=== PATIENT | female | born 1960 | race Caucasian/White ===

== ENCOUNTER 2020-10-14 14:51 | Outpatient (CLI) | payer BC, SELFPAY ==
--- NOTE | ~2020-10-14 | DEXA_ITS ---
Bone Density Report Name: Angeline Joaquin Age: 60 Sex: Female Ethnicity: White Date of : 1960 Indication: postmenopausal; height loss; Referring Provider: Caryl Fisher Study: Bone densitometry was performed. Exam Date: October 14, 2020 Accession number: [id number] Bone Density: Region BMD T-score Z-score Classification AP Spine (L1-L4) 1.003 -0.4 1.0 Normal Femoral Neck (Left) 0.756 -0.8 0.4 Normal Total Hip (Left) 0.904 -0.3 0.6 Normal Total Hip Bilateral Avg 0.913 -0.3 0.7 Normal Femoral Neck (Right) 0.723 -1.1 0.1 Osteopenia Total Hip (Right) 0.921 -0.2 0.8 Normal World Health Organization criteria for BMD impression classify patients as: Normal (T-score at or above -1.0), Osteopenia (T-score between -1.0 and -2.5), or Osteoporosis (T-score at or below -2.5). 10-year Fracture Risk(1): Major Osteoporotic Fracture 7.1% Hip Fracture 0.4% Reported Risk Factors: [place] (), Neck BMD=0.723, BMI=29.4 (1) FRAX(R) Version 3.08. Fracture probability calculated for an untreated patient. Fracture probability may be lower if the patient has received treatment. Clinical Information Provided by Patient: Patient maximum height was 67 Menopause Age: 55 Onset of menses at age 13 Number of children 0 Impression: The patient has low bone mass, based on the Right Femoral Neck T-score. The patient has an estimated ten-year risk of hip fracture of 0.4% and an estimated ten-year risk of major fracture of 7.1%, based on the WHO FRAX algorithm. Discussion: BONE DENSITY IS LOW AT ONE OR MORE SKELETAL SITES. This patient's lowest T-score is low at one or more skeletal sites. It meets the World Health Organization's (WHO) criteria for ?low bone mass? (T-score between -1.0 and -2.5). The patient's 10-year risk of fracture as calculated by FRAX is less than the threshold where pharmacological therapy is recommended by the National Osteoporosis Foundation (NOF). However, all treatment decisions require clinical judgment and consideration of individual patient factors, including patient preferences, comorbidities, previous drug use, risk factors not captured in the FRAX model (e.g., frailty, falls, vitamin D deficiency, increased bone turnover, interval significant decline in bone density) and possible under or overestimation of fracture risk by FRAX. The patient should follow a healthful lifestyle (good nutrition with adequate calcium and vitamin D, and appropriate weight-bearing exercise). Follow-Up: Consider repeating this study in 2 to 3 years to reassess this patient's status, or sooner if there is some new clinical indication. Reported by: SANG on 10/14/2020 3:24:00 PM. Reviewed, dictated and finalized at location A. [facility]
--- NOTE | ~2020-10-14 | MM_ITS ---
EXAMINATION: MM screening [facility] BI w óscar HISTORY: Screening TECHNIQUE: Craniocaudal and mediolateral oblique 3-D tomosynthesis images were obtained and synthetic 2-D images were generated. CAD analysis was submitted and interpreted. COMPARISON: 02/27/2017 BREAST PARENCHYMAL COMPOSITION: The breasts are heterogeneously dense, which may obscure small masses . FINDINGS: There is no evidence of suspicious mass, calcification, or architectural distortion to sugg est malignancy in either breast. There has been no suspicious interval change. IMPRESSION: 1. No mammographic evidence of malignancy. 2. Recommend routine screening mammography in one year. BI-RADS Category 1: Negative Reviewed, dictated and finalized at location A.
== END 2020-10-14 14:52 | disposition home or self-care (01) ==
PROVIDERS: PCP Internal Medicine; Visit Provider Nurse Practitioner
DX: Z12.31 Encounter for screening mammogram for malignant neoplasm of breast (principal); Z78.0 Asymptomatic menopausal state; M85.851 Other specified disorders of bone density and structure, right thigh
CPT/HCPCS: 77063; 77067; 77080

== ENCOUNTER 2023-04-23 08:13 | Outpatient (CLI) | payer BC, SELFPAY | END 2023-04-23 08:14 | disposition home or self-care (01) | LOC: ANHAUDIO 08:13 | PROVIDERS: PCP Family Medicine; Visit Provider Family Medicine | DX: H91.90 Unspecified hearing loss, unspecified ear (principal) | CPT/HCPCS: 92557; 92567 ==

== ENCOUNTER 2023-05-10 01:53 | Day surgery (SDC) | payer BC, SELFPAY ==
[2023-04-30 11:01] VITALS: BMI 29.0
[2023-05-10 10:39] VITALS: BP 124/87; PULSE 78; RESP 20; TEMP 36.2; O2SAT 100; BMI 28.0
[2023-05-10] MEDS: LACTATED RINGERS 1,000 ML 150 ML IV CONT (10:48)
--- NOTE | 2023-05-10 11:10 | WPDANESEPPF ---
Anes - Initial Pre Proc Eval Procedure: Operation Date: 05/10/23 11:30 Proposed Procedures p Screening Colonoscopy - Juan Pal MD Date/Time: 05/10/23 11:10 Surgeon: Juan Pal MD Pre Op Diagnosis: neoplasm screening Patient Data Age: 62 Gender: F Height: 1.7 m Weight: 81.4 kg Last Vital Signs Temp 97.1 F L 05/10/23 10:39 Pulse 78 05/10/23 10:39 Resp 20 05/10/23 10:39 BP 124/87 05/10/23 10:39 Pulse Ox 100 05/10/23 10:39 O2 Del Method Room Air 05/10/23 10:39 Allergies Allergy/AdvReac Type Severity Reaction Status Date / Time Cephalosporins Allergy Mild RASH Verified 05/10/23 10:38 cephalexin [From Keflex] Allergy Hives, Verified 05/10/23 10:38 Itching Home Medications Medication Instructions Recorded Confirmed Type calcium carbonate 500 mg calcium 500 mg PO DAILY 10/19/20 05/10/23 History (1,250 mg) tablet cholecalciferol (vitamin D3) 50 50 mcg PO DAILY 10/19/20 05/10/23 History mcg (2,000 unit) tablet venlafaxine 75 mg capsule,extended See Rx Instructions .Route 08/13/22 05/10/23 Rx release 24 hr .COMPLEX #90 caps alprazolam 0.5 mg tablet 0.5 mg PO BID #30 tabs 02/20/23 05/10/23 Rx venlafaxine 150 mg 150 mg PO DAILY #90 caps 02/20/23 05/10/23 Rx capsule,extended release 24 hr (Effexor XR) Patient hx anesthesia problems: none Family hx anesthesia problems: none Results Review: All pre-operative results and documents have been reviewed as part of the pre-operative evaluation. [facility] Past Medical History Medical History Abnormal mammogram Anxiety Depression Fibrocystic changes of left breast Family History Family History Other Family history of allergic disorder Family history of kidney disease Family history of malignant neoplasm Social History Social History Smoking packs per day: 1 Smoking cigarettes per day: 20.0 Years smoked: 25 Smoking pack-years: 25.00 Smoking status: Former smoker Tobacco type: cigarettes Second hand tobacco smoke exposure: Yes Smoking end date: 07/29/03 Alcohol intake: never Alcohol use details: Occasional Substance use: never Living arrangements: with family Occupation/Education: occupation Additional occupation/education comments: [employer] and [employer] Gender identity (if verbalized by the patient): Female Spiritual care concerns: No Anes - Eval Final PreProcedure Day of Procedure 05/10/23 11:10 Patient weight: normal Heart: regular rate and rhythm Lungs: clear to auscultation Airway: Mallampati scale class II Neurological: alert and oriented Last oral intake: >/= 8 hours ASA classification: II Emergent: no Anesthetic plan: proceed Anesthesia type and monitoring: general GIVS and standard monitoring Results Review: All pre-operative results and documents have been reviewed as part of the pre-operative evaluation. Informed Consent: The patient's anesthetic plan and its attendant risks and benefits were discussed with the patient/family/POA. Questions were solicited and answers provided to the satisfaction of the patient/family/POA.
--- NOTE | 2023-05-10 11:11 | PM.HPGS ---
History of Present Illness History of Present Illness Consent: Risks, benefits, and alternatives have been discussed and questions answered. Patient agrees to proceed with procedure. Chief complaint: neoplasm screening Narrative: Angeline Joaquin is a 62 year old female here for screening colonoscopy, had one about 32 years ago because hemorrhoids Review of Systems Constitutional: Constitutional: Denies headache(s) and Denies weakness Eyes: Eyes: Denies blurry vision ENT: Reports Normal hearing present, Denies headache(s) and Denies neck pain Cardiovascular: Cardiovascular: Denies chest pain and Denies dyspnea Respiratory: Respiratory: Denies dyspnea Gastrointestinal: Gastrointestinal: Reports no additional gastrointestinal complaints Genitourinary: Genitourinary: Denies dysuria Musculoskeletal: Musculoskeletal: Denies neck pain Integumentary/Breasts: Skin/Breast: Denies dry skin Neurologic: Reports Normal hearing present, Denies headache(s) and Denies weakness Psychiatric: Psychiatric: Denies anxiety Endocrine: Endocrine: Denies change in body appearance Hematologic/Lymphatic: Hematologic/Lymphatic: Denies easy bleeding Allergic/Immunologic: Allergic/Immunologic: Denies urticaria PMFSH Past Medical History Medical History Abnormal mammogram Anxiety Depression Fibrocystic changes of left breast Family History Family History Other Family history of allergic disorder Family history of kidney disease Family history of malignant neoplasm Social History Social History Smoking packs per day: 1 Smoking cigarettes per day: 20.0 Years smoked: 25 Smoking pack-years: 25.00 Smoking status: Former smoker Tobacco type: cigarettes Second hand tobacco smoke exposure: Yes Smoking end date: 07/29/03 Alcohol intake: never Alcohol use details: Occasional Substance use: never Living arrangements: with family Occupation/Education: occupation Additional occupation/education comments: [employer] Gender identity (if verbalized by the patient): Female Spiritual care concerns: No Meds Home Medications and Allergies Home Medications Medication Instructions Recorded Confirmed Type calcium carbonate 500 mg calcium 500 mg PO DAILY 10/19/20 05/10/23 History (1,250 mg) tablet cholecalciferol (vitamin D3) 50 50 mcg PO DAILY 10/19/20 05/10/23 History mcg (2,000 unit) tablet venlafaxine 75 mg capsule,extended See Rx Instructions .Route 08/13/22 05/10/23 Rx release 24 hr .COMPLEX #90 caps alprazolam 0.5 mg tablet 0.5 mg PO BID #30 tabs 02/20/23 05/10/23 Rx venlafaxine 150 mg 150 mg PO DAILY #90 caps 02/20/23 05/10/23 Rx capsule,extended release 24 hr (Effexor XR) Allergies Allergy/AdvReac Type Severity Reaction Status Date / Time Cephalosporins Allergy Mild RASH Verified 05/10/23 10:38 cephalexin [From Keflex] Allergy Hives, Verified 05/10/23 10:38 Itching Vital Signs Vital Signs - 24 hr 05/10/23 10:39 Temperature 97.1 F L Pulse Rate 78 Respiratory Rate 20 Blood Pressure 124/87 Pulse Oximetry 100 Oxygen Delivery Room Air Exam Const: General: comfortable and no acute distress HENMT: Face/Nose/Sinus: Normal nares present Eyes: General: appearance normal, both eyes and all related structures Neck: Neck: no JVD Resp: Auscultation: clear to auscultation bilaterally Cardio: Rate: regular rate Rhythm: regular rhythm GI: Inspection: non-distended GI Palp: Yes Soft to palpation Skin: General skin exam: normal color Neuro: General: gait normal Speech: normal speech Extrem: General: normal to inspection Psych: Mental Status: mental status grossly normal Assessment and Plan Assessment and plan (1) Screening for colon cance
[2023-05-10 11:29] VITALS: BP 111/66; PULSE 74; RESP 24; O2SAT 98
[2023-05-10 11:39] VITALS: BP 112/79; PULSE 78; RESP 27; O2SAT 98
[2023-05-10 11:49] VITALS: BP 122/81; PULSE 87; RESP 22; O2SAT 99
== END 2023-05-10 11:50 | disposition home or self-care (01) ==
PROVIDERS: PCP Family Medicine; Visit Provider Internal Medicine Gastroenterology
PROC: 0DJD8ZZ Inspection of Lower Intestinal Tract, Via Natural or Artificial Opening Endoscopic (ICD-10-PCS; CPT 45378; principal; 2023-05-10 11:30)
DX: Z12.11 Encounter for screening for malignant neoplasm of colon (principal); F41.9 Anxiety disorder, unspecified; F32.A Depression, unspecified; Z87.891 Personal history of nicotine dependence
CPT/HCPCS: 45378; J2704; J7120

== ENCOUNTER 2024-09-03 17:32 | Emergency (ER) | payer BC, SELFPAY ==
--- NOTE | ~2024-09-03 | XR_ITS ---
HISTORY: fall down stairs COMPARISON: None TECHNIQUE: 4 views of the right ankle were performed FINDINGS: No acute fracture or dislocation. Significant lateral soft tissue swelling. The ankle mortise is preserved. Bone mineralization is age-appropriate. Ossification of the insertion of the Achilles tendon. Small calcaneal spur is noted. IMPRESSION: Degenerative disease without acute fracture. Significant lateral soft tissue swelling. Reviewed, dictated and finalized at location A. A [facility] COORDIN[facility]
--- NOTE | 2024-09-03 18:21 | ED.LOWEXIN ---
HPI - Extremity Injury (Lower) General Chief Complaint: Extremity Injury, Lower <BALDEMAR Alejandra Last Filed: 09/03/24 18:30> Stated Complaint: I twisted my right ankle <BALDEMAR Alejandra Last Filed: 09/03/24 18:30> Time Seen by Provider: 09/03/24 18:21 <BALDEMAR Alejandra Last Filed: 09/03/24 18:30> Focused HPI: Patient is a 64 y/o female who presents to the ED with c/o right ankle pain. Patient reports she slipped and fell down 2 stairs. Sustained an inversion injury to her right ankle and states she heard a snap. Has since developed pain and swelling to R lateral ankle. Pain with ambulation. Denies any other injuries from the fall. Denies HI/LOC, neck or back pain, knee pain. Has not taken anything for pain. GENERAL: Well-appearing, well-nourished, and in no acute distress. HEAD: Normocephalic, atraumatic. CHEST: Clear to auscultation. ?No respiratory distress. HEART: Regular rate and rhythm.? MSK: Moderate swelling diffusely throughout R ankle joint, worst over lateral malleoli/lateral lower leg. Focal TTP. Sensation intact. Capillary intact. Pedal pulses intact. NEURO: ?Alert and oriented x3. Patient screened in triage and initial orders placed.? ?Additional care and disposition to be based upon?diagnostic testing and treatment. <BALDEMAR Alejandra Last Filed: 09/03/24 18:30> Source: patient <BALDEMAR Alejandra Last Filed: 09/03/24 18:30> Mode of arrival: ambulatory <BALDEMAR Alejandra Last Filed: 09/03/24 18:30> Limitations: no limitations <BALDEMAR Alejandra Last Filed: 09/03/24 18:30> History of Present Illness HPI Narrative: Agree with MSE note <BALDEMAR Redmond Last Filed: 09/04/24 02:07> Related Data Allergies/Adverse Reactions: Allergies Allergy/AdvReac Type Severity Reaction Status Date / Time Cephalosporins Allergy Mild RASH Verified 09/03/24 17:33 cephalexin (From Keflex) Allergy Hives, Verified 09/03/24 17:33 Itching <Fiorella Guillory PA-C - Last Filed: 09/03/24 18:30> Review of Systems Review of Systems: All systems as dictated in HPI <BALDEMAR Redmond Last Filed: 09/04/24 02:07> PMFSH Past Medical History Medical History: Medical History Abnormal mammogram Anxiety Depression Fibrocystic changes of left breast <BALDEMAR Alejandra Last Filed: 09/03/24 18:30> Family History Family History: Family History Other Family history of allergic disorder Family history of kidney disease Family history of malignant neoplasm <BALDEMAR Alejandra Last Filed: 09/03/24 18:30> Social History Social History: Social History Smoking packs per day: 1 Smoking cigarettes per day: 20.0 Years smoked: 25 Smoking pack-years: 25.00 Smoking status: Former smoker Tobacco type: cigarettes Second hand tobacco smoke exposure: Yes Smoking end date: 07/29/03 Alcohol intake: never Alcohol use details: Occasional Substance use: never Living arrangements: with family Occupation/Education: occupation Additional occupation/education comments: [place] [employer] and [employer] Gender identity (if verbalized by the patient): Female Spiritual care concerns: No <BALDEMAR Alejandra Last Filed: 09/03/24 18:30> Exam Narrative: GENERAL: Well-appearing, well-nourished, and in no acute distress. MSK: Left ankle with significant soft tissue swelling laterally and mild medial swelling. Mild tenderness to the medial and lateral malleoli. No deformity. Neurovascularly intact distally. Right lower extremity benign SKIN: Warm, dry, no rash. NEURO: Alert and oriented x4. No focal deficits. PSYCH: Normal mood and affect. <Dex You PA-C - Last Filed: 09/04/24 02:07> Course Vital Signs Vital signs: Vital Signs Temperature 97.6 F 09/03/24 18:29 Pulse Rate 87 09/03/24 18:29 Respiratory Rate 16 09/03/24 18:29 Blood Pressure 150/84 H 09/03/24 18:29 Pulse Oximetry 98 09/03/24 18:29 Oxygen Delivery Room Air 09/03/24 18:29 Temperature 97.6 F 09/03/24 18:29 Pulse Rate 87 09/03/24 18:29 Respiratory Rate 16 09/03/24 18:29 Blood Pressure 150/84 H 09/03/24 18:29 Pulse Oximetry 98 09/03/24 18:29 Oxygen Delivery Room Air 09/03/24 18:29 <Fiorella Guillory PA-C - Last Filed: 09/03/24 18:30> Vital Signs Temperature 97.6 F 09/03/24 18:29 Pulse Rate 87 09/03/24 18:29 Respiratory Rate 16 09/03/24 18:29 Blood Pressure 150/84 H 09/03/24 18:29 Pulse Oximetry 98 09/03/24 18:29 Oxygen Delivery Room Air 09/03/24 18:29 Temperature 97.6 F 09/03/24 18:29 Pulse Rate 87 09/03/24 18:29 Respiratory Rate 16 09/03/24 18:29 Blood Pressure 150/84 H 09/03/24 18:29 Pulse Oximetry 98 09/03/24 18:29 Oxygen Delivery Room Air 09/03/24 18:29 <Dex You PA-C - Last Filed: 09/04/24 02:07> MDM - Extremity Injury (Lower) MDM Narrative Medical decision making narrative: MSE by DANIELA in triage. <BALDEMAR Alejandra Last Filed: 09/03/24 18:30> MSE by DANIELA in triage. This is a 64-year-old female who presents to the ED for chief complaint of right ankle injury. Vitals are normal. Exam remarkable for the above. She has significant soft tissue swelling to the ankle but no deformity. X-rays are negative for acute osseous findings. Presentation consistent with ankle sprain. She was given Maurice wrap and crutches for assistance with ambulation. Pt will be discharged in stable condition. Return precautions given and supportive measures discussed. Pt is understanding and agreeable with plan for discharge and follow-up with PCP. <Dex You PA-C - Last Filed: 09/04/24 02:07> Discharge Plan Discharge Clinical Impression: Ankle sprain and strain <Fiorella Guillory PA-C - Last Filed: 09/03/24 18:30> Patient Disposition: Home, Self-Care <Fiorella Guillory PA-C - Last Filed: 09/03/24 18:30> Condition: Stable <Fiorella Guillory PA-C - Last Filed: 09/03/24 18:30> Instructions: Antibiotic Form, Ankle Sprain (ED) <Fiorella Guillory PA-C - Last Filed: 09/03/24 18:30> Additional Instructions: Your exam and imaging today are reassuring. No fractures. Please use crutches and remain weight-bearing as tolerated with the use of crutches for assistance. Follow-up with your PCP on this issue. Take Tylenol 500 mg and ibuprofen 600 mg every 6 hours as needed for pain and swelling. If you have any new or worsening symptoms please return to the ER for further evaluation. <Fiorella Guillory PA-C - Last Filed: 09/03/24 18:30> Patient Language: Slovak <Fiorella Guillory PA-C - Last Filed: 09/03/24 18:30> Prescriptions: No Action cholecalciferol (vitamin D3) [Dialyvite Vitamin D3 Max] 1,250 mcg (50,000 unit) tablet See Rx Instructions .ROUTE .COMPLEX Qty: 20 0RF Dose Instruction: TAKE 1 TABLET BY MOUTH WEEKLY Rx Instructions: TAKE 1 TABLET BY MOUTH WEEKLY venlafaxine 75 mg capsule,extended release 24hr See Rx Instructions .ROUTE .COMPLEX Qty: 90 0RF Dose Instruction: TAKE 1 CAPSULE BY MOUTH DAILY Rx Instructions: TAKE 1 CAPSULE BY MOUTH DAILY <Fiorella Guillory PA-C - Last Filed: 09/03/24 18:30> Follow-up/Referrals: Bam Gomes MD [Primary Care Provider] - <Fiorella Guillory PA-C - Last Filed: 09/03/24 18:30> Time of Disposition: 19:59 <Fiorella Guillory PA-C - Last Filed: 09/03/24 18:30> 19:59 <Dex You PA-C - Last Filed: 09/04/24 02:07>
[2024-09-03 18:29] VITALS: BP 150/84; PULSE 87; RESP 16; TEMP 36.4; O2SAT 98
== END 2024-09-03 20:20 | disposition home or self-care (01) ==
LOC: ANHED 20:12
PROVIDERS: Emergency Provider Physician Assistant; PCP Family Medicine
DX: S93.401A Sprain of unspecified ligament of right ankle, initial encounter (principal); S96.911A Strain of unspecified muscle and tendon at ankle and foot level, right foot, initial encounter; F41.9 Anxiety disorder, unspecified; F32.A Depression, unspecified; Z87.891 Personal history of nicotine dependence; W10.9XXA Fall (on) (from) unspecified stairs and steps, initial encounter
CPT/HCPCS: 73610; 99283

== ENCOUNTER 2024-10-02 09:09 | Outpatient (CLI) | payer BC, SELFPAY ==
--- NOTE | ~2024-10-02 | MM_ITS ---
EXAMINATION: MM screening [facility] BI w óscar HISTORY: Screening TECHNIQUE: Craniocaudal and mediolateral oblique 3-D tomosynthesis images were obtained and synthetic 2-D images were generated. CAD analysis was submitted and interpreted. COMPARISON: 10/14/2020 and dating back to 01/14/2017 BREAST PARENCHYMAL COMPOSITION: The breasts are heterogeneously dense, which may obscure small masses . FINDINGS: A ribbon and a tophat microclip are identified within the upper outer quadrant of the left breast, consistent with patient's history. Stable parenchymal pattern without suspicious microcalcifications, architectural distortion, discrete masses or significant asymmetry. IMPRESSION: 1. No mammographic/tomographic evidence of malignancy. 2. Recommend routine screening mammography in one year. BI-RADS Category 2: Benign finding(s). Reviewed, dictated and finalized at location A. [facility]
== END 2024-10-02 09:10 | disposition home or self-care (01) ==
LOC: ANHIMG 09:11
PROVIDERS: PCP Family Medicine; Visit Provider Family Medicine
DX: Z12.31 Encounter for screening mammogram for malignant neoplasm of breast (principal)
CPT/HCPCS: 77063; 77067

== ENCOUNTER 2025-05-11 08:07 | Outpatient (CLI) | payer BC, SELFPAY ==
--- NOTE | ~2025-05-11 | XR_ITS ---
EXAMINATION: XR knee LT 3V, 05/11/2025 8:10 CDT HISTORY: M25.562 - Pain in left knee COMPARISON: No comparisons available. Findings: No acute fracture or malalignment. No significant degenerative changes. Soft tissues unremarkable. Impression: No acute fracture or malalignment. Reviewed, dictated and finalized at location P. Impression: No acute fracture or malalignment.
== END 2025-05-11 08:08 | disposition home or self-care (01) ==
PROVIDERS: PCP Family Medicine; Visit Provider Family Medicine
DX: M25.562 Pain in left knee (principal)
CPT/HCPCS: 73562